=== PATIENT | female | born 1955 | race American Indian/Alaskan Native ===

== ENCOUNTER 2017-09-15 09:26 | Outpatient (CLI) | payer MEDICARE ==
[2017-09-15 10:07] LABS: Hematocrit 38.2 % (30.3-42.9); Hemoglobin 12.9 gm/dl (10.1-14.3); Mean Corpuscular HGB Conc 34 % (30-34); Mean Corpuscular Hemoglobin 30 pg (28-32); Mean Corpuscular Volume 87 fl (79-97); Platelet Count 353 K/mm3 (140-440); Red Blood Count 4.37 M/mm3 (3.65-5.03); Red Cell Distribution Width 14.8 % (13.2-15.2)
[2017-09-15 10:24] LABS: Alanine Aminotransferase 10 units/L (7-56); BUN/Creatinine Ratio 25; Blood Urea Nitrogen 20 mg/dL (7-17); Calcium 9.3 mg/dL (8.4-10.2); Hemolysis Index 3
--- NOTE | 2017-09-15 10:31 | XRay Report ---
CHEST 2 VIEWS INDICATION: COPD. COMPARISON: 07/04/[address] findings. FINDINGS: PA and lateral chest radiographs demonstrate normal cardiomediastinal silhouette. Aortic knob calcifications. Clear, well-expanded lungs. Thoracic spondylosis. Cholecystectomy clips. CONCLUSION: No acute chest process, as described. Thank you for the opportunity to participate in this patient's care.
== END 2017-09-15 09:27 | disposition home or self-care (01) ==
LOC: XRAY 09:26
PROVIDERS: ATTEND Internal Medicine
DX: J44.9 Chronic obstructive pulmonary disease, unspecified (principal); I10 Essential (primary) hypertension; K21.9 Gastro-esophageal reflux disease without esophagitis; Z87.891 Personal history of nicotine dependence
CPT/HCPCS: 36415; 71046; 80053; 82785; 82803; 84436; 84443; 85027

== ENCOUNTER 2020-07-29 20:54 | Emergency (ER) | payer MEDICARE ==
[2020-07-29] MEDS ORDERED: IPRATROPIUM 0.02% NEBU 2.5 ML IH ONE (21:13)
[2020-07-29] MEDS ORDERED: methylPREDNISolone Sod Succinate 125 MG/2 ML INJ IV ONE (21:13)
[2020-07-29] MEDS ORDERED: ALBUTEROL 2.5 MG/3 ML NEBU IH ONE (21:13)
[2020-07-29 21:50] LABS: Basophils # (Auto) 0.1 K/mm3 (0.0-0.1); Basophils % (Auto) 1.6 % (0.0-1.8); Eosinophils # (Auto) 0.4 K/mm3 (0.0-0.4); Eosinophils % (Auto) 5.5 % (0.0-4.3); Hematocrit 38.3 % (30.3-42.9); Hemoglobin 12.7 gm/dl (10.1-14.3); Lymphocytes # (Auto) 2.1 K/mm3 (1.2-5.4); Lymphocytes % (Auto) 27.8 % (13.4-35.0); Mean Corpuscular HGB Conc 33 % (30-34); Mean Corpuscular Volume 86 fl (79-97); Monocytes # (Auto) 0.4 K/mm3 (0.0-0.8); Monocytes % (Auto) 5.8 % (0.0-7.3); Platelet Count 344 K/mm3 (140-440); Red Blood Count 4.43 M/mm3 (3.65-5.03); Red Cell Distribution Width 17.3 % (13.2-15.2)
--- NOTE | 2020-07-29 22:03 | XRay Report ---
CHEST 1 VIEW 07/29/2020 8:35 PM INDICATION / CLINICAL INFORMATION: sob, wheezing. COMPARISON: None FINDINGS: SUPPORT DEVICES: None. HEART / MEDIASTINUM: Cardiac silhouette is within normal limits. Aortic arch demonstrated calcific at herosclerosis. Hilar and mediastinal contours are otherwise unremarkable. LUNGS / PLEURA: No significant pulmonary or pleural abnormality. No pneumothorax. ADDITIONAL FINDINGS: No significant additional findings. IMPRESSION: 1. No acute findings. Signer Name: Fausto Harris MD Signed: 07/29/2020 9:58 PM Workstation Name: [id number]
[2020-07-29 22:17] LABS: BUN/Creatinine Ratio 14; Blood Urea Nitrogen 11 mg/dL (7-17); Calcium 9.6 mg/dL (8.4-10.2); Hemolysis Index 15
--- NOTE | 2020-07-29 22:52 | Emergency Department Report ---
ED Shortness of Breath HPI - General Chief Complaint: Dyspnea/Respdistress Stated Complaint: ALDA Time Seen by Provider: 07/29/20 21:05 Source: EMS Mode of arrival: Stretcher Limitations: No Limitations - History of Present Illness Initial Comments: 65-year-old female, history of COPD (not on home O2), presents to ED with shortness of breath and wheezing since last night. Patient denies any chest pain. Patient reports cough, denies fever. Patient reports inhalers and nebulizers at home are not working. Patient states she stopped smoking approximately 1 year ago. Patient states she has not yet received her COVID-19 vaccine. MD Complaint: shortness of breath -: Last night Consistency: constant Improves With: nothing Worsens With: exertion Known History Of: COPD Associated Symptoms: cough Treatments Prior to Arrival: bronchodilator - Related Data Home Oxygen Therapy: No Home Medications Medication Instructions Recorded Confirmed Last Taken Albuterol Sulfate [Proair Hfa] 2 pump IH BID 09/21/14 10/15/14 10/14/14 Clonidine HCl 0.1 mg PO DAILY 09/21/14 10/15/14 10/13/14 Codeine/Butalbital/ASA/Caffein 1 each PO Q8H PRN 09/21/14 10/15/14 10/13/14 [Butalbital Comp-Codeine #3 Cap] Lisinopril/Hydrochlorothiazide 1 tab PO DAILY 09/21/14 10/15/14 10/15/14 [Lisinopril-Hctz 10-12.5 mg Tab] Omeprazole 40 mg PO DAILY 09/21/14 10/15/14 10/13/14 Paroxetine HCl 20 mg PO DAILY 09/21/14 10/15/14 10/15/14 Pentoxifylline 400 mg PO BID 09/21/14 10/15/14 10/14/14 Previous Rx's Medication Instructions Recorded Last Taken Type Albuterol Sulfate [Proventil Hfa] 2 puff IH Q4HR PRN #1 hfa.aer.ad 07/29/20 Unknown Rx Benzonatate [Tessalon Perles] 100 mg PO Q8HR PRN #20 capsule 07/29/20 Unknown Rx predniSONE [Deltasone] 50 mg PO QDAY #5 tab 07/29/20 Unknown Rx Allergies Allergy/AdvReac Type Severity Reaction Status Date / Time aspirin AdvReac Mild Nausea Verified 07/29/20 21:05 ED Review of Systems ROS: Stated complaint: ALDA Other details as noted in HPI Comment: All other systems reviewed and negative Constitutional: denies: fever Respiratory: cough, shortness of breath, wheezing Cardiovascular: denies: chest pain ED Past Medical Hx - Past Medical History Previous Medical History?: Yes Hx Hypertension: Yes Hx Asthma: Yes Hx COPD: Yes Additional medical history: chronic bronchitis, depression - Surgical History Past Surgical History?: Yes Hx Cholecystectomy: Yes Additional Surgical History: back surgery - Social History Smoking Status: Former Smoker Substance Use Type: Alcohol, Marijuana - Medications Home Medications: Home Medications Medication Instructions Recorded Confirmed Last Taken Type Albuterol Sulfate [Proair Hfa] 2 pump IH BID 09/21/14 10/15/14 10/14/14 History Clonidine HCl 0.1 mg PO DAILY 09/21/14 10/15/14 10/13/14 History Codeine/Butalbital/ASA/Caffein 1 each PO Q8H PRN 09/21/14 10/15/14 10/13/14 History [Butalbital Comp-Codeine #3 Cap] Lisinopril/Hydrochlorothiazide 1 tab PO DAILY 09/21/14 10/15/14 10/15/14 History [Lisinopril-Hctz 10-12.5 mg Tab] Omeprazole 40 mg PO DAILY 09/21/14 10/15/14 10/13/14 History Paroxetine HCl 20 mg PO DAILY 09/21/14 10/15/14 10/15/14 History Pentoxifylline 400 mg PO BID 09/21/14 10/15/14 10/14/14 History Albuterol Sulfate [Proventil Hfa] 2 puff IH Q4HR PRN #1 hfa.aer.ad 07/29/20 Unknown Rx Benzonatate [Tessalon Perles] 100 mg PO Q8HR PRN #20 capsule 07/29/20 Unknown Rx predniSONE [Deltasone] 50 mg PO QDAY #5 tab 07/29/20 Unknown Rx ED Physical Exam - General Limitations: No Limitations General appearance: alert, in no apparent distress - Head Head exam: Present: atraumatic, normocephalic - Eye Eye exam: Present: normal appearance - ENT ENT exam: Present: mucous membranes moist - Neck Neck exam: Present: normal inspection - Respiratory Respiratory exam: Present: wheezes - Cardiovascular Cardiovascular Exam: Present: regular rate, normal rhythm - GI/Abdominal GI/Abdominal exam: Present: soft. Absent: distended, tenderness - Extremities Exam Extremities exam: Present: normal inspection - Neurological Exam Neurological exam: Present: alert, oriented X3 - Psychiatric Psychiatric exam: Present: normal affect, normal mood - Skin Skin exam: Present: warm, dry, intact, normal color ED Course Vital Signs 07/29/20 07/29/20 07/29/20 20:59 21:00 21:06 Temperature 98.1 F Pulse Rate 67 Pulse Rate [ Bilateral Throughout] Respiratory 17 12 Rate Respiratory Rate [Bilateral Throughout] Blood Pressure 159/85 O2 Sat by Pulse 100 100 Oximetry 07/29/20 07/29/20 07/29/20 21:16 21:18 21:30 Temperature Pulse Rate 65 64 Pulse Rate [ Bilateral Throughout] Respiratory 22 23 Rate Respiratory Rate [Bilateral Throughout] Blood Pressure 152/73 154/82 O2 Sat by Pulse 100 100 98 Oximetry 07/29/20 22:34 Temperature Pulse Rate Pulse Rate [ 60 Bilateral Throughout] Respiratory Rate Respiratory 18 Rate [Bilateral Throughout] Blood Pressure O2 Sat by Pulse Oximetry - Reevaluation(s) Reevaluation #1: 07/29/20 23:37 Wheezing mostly resolved, only scant wheezes remain. Patient reports she is feeling much better following the nebulizer treatment. ED Medical Decision Making - Lab Data Result diagrams: 07/29/20 21:21 07/29/20 21:21 - EKG Data -: EKG Interpreted by Wi EKG shows normal: sinus rhythm, axis, intervals, QRS complexes, ST-T waves Rate: normal - EKG Data Interpretation: no acute changes - Radiology Data Radiology results: report reviewed, image reviewed - Medical Decision Making 65-year-old female presents to ED with COPD exacerbation. Initially with coarse wheezes throughout. Patient afebrile, O2 sats normal. Patient given Solu- Medrol and albuterol nebs. She is currently feeling much better. Labs are unremarkable. EKG shows no ST changes. Troponin negative. Chest x-ray negative as well. Will discharge at this time with prescriptions. Outpatient follow-up advised, return precautions given. Critical care attestation.: If time is entered above; I have spent that time in minutes in the direct care of this critically ill patient, excluding procedure time. ED Disposition Clinical Impression: COPD exacerbation Disposition: DC-01 TO HOME OR SELFCARE Is pt being admited?: No Condition: Stable Instructions: Chronic Obstructive Pulmonary Disease (ED), Chronic Obstructive Pulmonary Disease, [id number] Referrals: PRIMARY CARE, [Primary Care Provider] - 3-5 Days [facility] [Provider Group] - 3-5 Days Time of Disposition: 23:39
[2020-07-29] MEDS ORDERED: traMADol 50 MG TAB PO ONE (23:36)
[2020-07-30 02:47] VITALS: BP 170/75
--- NOTE | 2020-08-01 09:30 | Electrocardiograph Report ---
[facility] Test Date: 2020-07-29 Test Time: 23:31:01 Pat Name: BECCA VASQUES Department: Room: Gender: F [employer] Attendant: Caridad ROOT : 1955 Requested By: BERNARD SPICER Order Number: [id number] Reading MD: Miguel Gross Measurements Intervals [place] Rate: 77 P: 52 MS: 178 QRS: 39 QRSD: 91 T: -82 QT: 377 QTc: 427 Interpretive Statements Sinus rhythm Probable left atrial enlargement Nonspecific T abnormalities, diffuse leads No previous ECG available for comparison Electronically Signed On 08-01-2020 9:30:30 EDT by Miguel Gross
== END 2020-07-30 00:03 | disposition home or self-care (01) ==
LOC: ED 20:54
DX: J44.1 Chronic obstructive pulmonary disease with (acute) exacerbation (principal); I10 Essential (primary) hypertension; Z90.49 Acquired absence of other specified parts of digestive tract; F12.10 Cannabis abuse, uncomplicated; Z79.899 Other long term (current) drug therapy; Z88.6 Allergy status to analgesic agent
CPT/HCPCS: 36415; 71045; 80048; 84484; 85025; 93005; 94644; 96374; 99284; J2930

== ENCOUNTER 2021-11-02 04:31 | Emergency (ER) | payer MEDICARE ==
[2021-11-02] MEDS ORDERED: ACETAMINOPHEN 500 MG TAB PO ONE (08:05)
[2021-11-02 09:35] LABS: Basophils % (Auto) 0.6 % (0.0-1.8); Eosinophils # (Auto) 0.3 K/mm3 (0.0-0.4); Eosinophils % (Auto) 4.3 % (0.0-4.3); Hematocrit 36.4 % (30.3-42.9); Hemoglobin 12.3 gm/dl (10.1-14.3); Lymphocytes # (Auto) 2.8 K/mm3 (1.2-5.4); Lymphocytes % (Auto) 40.8 % (13.4-35.0); Mean Corpuscular HGB Conc 34 % (30-34); Mean Corpuscular Volume 87 fl (79-97); Monocytes # (Auto) 0.7 K/mm3 (0.0-0.8); Monocytes % (Auto) 10.6 % (0.0-7.3); Platelet Count 275 K/mm3 (140-440); Red Blood Count 4.16 M/mm3 (3.65-5.03); Red Cell Distribution Width 15.9 % (13.2-15.2)
--- NOTE | 2021-11-02 09:54 | XRay Report ---
CHEST 2 VIEWS INDICATION / CLINICAL INFORMATION: cough. COMPARISON: 07/29/2020 FINDINGS: SUPPORT DEVICES: None. HEART / MEDIASTINUM: No significant abnormality. LUNGS / PLEURA: No significant pulmonary or pleural abnormality. No pneumothorax. ADDITIONAL FINDINGS: No significant additional findings. IMPRESSION: 1. No acute findings. Signer Name: Linwood Contreras MD Signed: 11/02/2021 9:50 AM Workstation Name: [id number]
[2021-11-02 10:04] LABS: Alanine Aminotransferase 35 units/L (7-56); Albumin 4.1 g/dL (3.9-5); BUN/Creatinine Ratio 12; Blood Urea Nitrogen 11 mg/dL (7-17); Calcium 10.2 mg/dL (8.4-10.2); Hemolysis Index 0
--- NOTE | 2021-11-02 10:41 | Emergency Department Report ---
- General Chief Complaint: Upper Respiratory Infection Stated Complaint: HEADACHE/COLD SYMPTOMS Time Seen by Provider: 11/02/21 07:59 Source: patient, family Mode of arrival: Ambulatory Limitations: No Limitations - History of Present Illness Initial Comments: This is a 66-year-old female nontoxic, well nourished in appearance, no acute signs of distress presents to the ED with c/o of productive cough, subjective fever, chills, body aches, sinus headaches, rhinorrhea, nasal congestion x several days. Patient describes productive cough as yellow mucus production. Patient denies any sick contacts. Stated is COVID vaccinated. Patient denies any recent travels, long car, recent hospital stays. Patient denies any calf pain or calf tenderness. Patient denies any chest pain, short of breath, nausea, vomiting, hemoptysis, numbness, tingling, headache or stiff neck. Tarah acevedo stated allergies to aspirin. MD Complaint: fever, cough, rhinorrhea, nasal congestion, sinus pain -: days(s) Severity: mild Severity scale (0 -10): 3 Quality: aching Consistency: constant Improves With: nothing Worsens With: nothing Associated Symptoms: fever, chills, rhinorrhea, nasal congestion, cough, other (sinus pain). denies: myalgias, diaphoresis, headache, sore throat, stiff neck, chest pain, shortness of breath, abdominal pain, nausea, vomiting, diarrhea, d ysuria, rash, confusion, right sweats, weight loss, epistaxis, hoarseness, ear pain Treatments Prior to Arrival: none - Related Data Home Medications Medication Instructions Recorded Confirmed Last Taken Albuterol Sulfate [Proair Hfa] 2 pump IH BID 09/21/14 10/15/14 10/14/14 Clonidine HCl 0.1 mg PO DAILY 09/21/14 10/15/14 10/13/14 Codeine/Butalbital/ASA/Caffein 1 each PO Q8H PRN 09/21/14 10/15/14 10/13/14 [Butalbital Comp-Codeine #3 Cap] Lisinopril/Hydrochlorothiazide 1 tab PO DAILY 09/21/14 10/15/14 10/15/14 [Lisinopril-Hctz 10-12.5 mg Tab] Omeprazole 40 mg PO DAILY 09/21/14 10/15/14 10/13/14 Paroxetine HCl 20 mg PO DAILY 09/21/14 10/15/14 10/15/14 Pentoxifylline 400 mg PO BID 09/21/14 10/15/14 10/14/14 Previous Rx's Medication Instructions Recorded Last Taken Type Albuterol Sulfate [Proventil Hfa] 2 puff IH Q4HR PRN #1 hfa.aer.ad 07/29/20 Unknown Rx Benzonatate [Tessalon Perles] 100 mg PO Q8HR PRN #20 capsule 07/29/20 Unknown Rx predniSONE [Deltasone] 50 mg PO QDAY #5 tab 07/29/20 Unknown Rx Acetaminophen [Acetaminophen 8 650 mg PO Q8H PRN #12 tab 11/02/21 Unknown Rx Hour] Amoxicillin/K Clav Tab [Augmentin 1 tab PO Q12HR #20 tab 11/02/21 Unknown Rx 875 mg] Benzonatate [Tessalon Perles] 100 mg PO Q8HR PRN #14 cap 11/02/21 Unknown Rx Allergies Allergy/AdvReac Type Severity Reaction Status Date / Time aspirin AdvReac Mild Nausea Verified 07/29/20 21:05 ED Review of Systems ROS: Stated complaint: HEADACHE/COLD SYMPTOMS Other details as noted in HPI Comment: All other systems reviewed and negative Constitutional: chills, fever Eyes: denies: eye pain, eye discharge, vision change ENT: congestion. denies: ear pain, throat pain Respiratory: cough. denies: shortness of breath, wheezing Cardiovascular: denies: chest pain, palpitations Endocrine: no symptoms reported Gastrointestinal: denies: abdominal pain, nausea, diarrhea Genitourinary: denies: urgency, dysuria, discharge Musculoskeletal: denies: back pain, joint swelling, arthralgia Skin: denies: rash, lesions Neurological: denies: headache, weakness, paresthesias Psychiatric: denies: anxiety, depression Hematological/Lymphatic: denies: easy bleeding, easy bruising ED Past Medical Hx - Past Medical History Previous Medical History?: Yes Hx Hypertension: Yes Hx Asthma: Yes Hx COPD: Yes Additional medical history: chronic bronchitis, depression - Surgical History Past Surgical History?: Yes Hx Cholecystectomy: Yes Additional Surgical History: back surgery - Social History Smoking Status: Never Smoker Substance Use Type: None - Medications Home Medications: Home Medications Medication Instructions Recorded Confirmed Last Taken Type Albuterol Sulfate [Proair Hfa] 2 pump IH BID 09/21/14 10/15/14 10/14/14 History Clonidine HCl 0.1 mg PO DAILY 09/21/14 10/15/14 10/13/14 History Codeine/Butalbital/ASA/Caffein 1 each PO Q8H PRN 09/21/14 10/15/14 10/13/14 History [Butalbital Comp-Codeine #3 Cap] Lisinopril/Hydrochlorothiazide 1 tab PO DAILY 09/21/14 10/15/14 10/15/14 History [Lisinopril-Hctz 10-12.5 mg Tab] Omeprazole 40 mg PO DAILY 09/21/14 10/15/14 10/13/14 History Paroxetine HCl 20 mg PO DAILY 09/21/14 10/15/14 10/15/14 History Pentoxifylline 400 mg PO BID 09/21/14 10/15/14 10/14/14 History Albuterol Sulfate [Proventil Hfa] 2 puff IH Q4HR PRN #1 hfa.aer.ad 07/29/20 Unknown Rx Benzonatate [Tessalon Perles] 100 mg PO Q8HR PRN #20 capsule 07/29/20 Unknown Rx predniSONE [Deltasone] 50 mg PO QDAY #5 tab 07/29/20 Unknown Rx Acetaminophen [Acetaminophen 8 650 mg PO Q8H PRN #12 tab 11/02/21 Unknown Rx Hour] Amoxicillin/K Clav Tab [Augmentin 1 tab PO Q12HR #20 tab 11/02/21 Unknown Rx 875 mg] Benzonatate [Tessalon Perles] 100 mg PO Q8HR PRN #14 cap 11/02/21 Unknown Rx ED Physical Exam - General Limitations: No Limitations General appearance: alert, in no apparent distress - Head Head exam: Present: atraumatic, normocephalic - Eye Eye exam: Present: normal appearance, PERRL, EOMI - ENT ENT exam: Present: normal exam, normal orophraynx - Neck Neck exam: Present: normal inspection, full ROM. Absent: tenderness, meningismus, lymphadenopathy - Respiratory Respiratory exam: Present: normal lung sounds bilaterally. Absent: respiratory distress, wheezes, rales, rhonchi, stridor, chest wall tenderness, accessory mus norberto use, decreased breath sounds, prolonged expiratory - Cardiovascular Cardiovascular Exam: Present: regular rate, normal rhythm, normal heart sounds. Absent: bradycardia, tachycardia, irregular rhythm, systolic murmur, diastolic murmur, rubs, gallop - GI/Abdominal GI/Abdominal exam: Present: soft, normal bowel sounds. Absent: distended, tenderness, guarding, rebound, rigid, diminished bowel sounds - Extremities Exam Extremities exam: Present: normal inspection, full ROM - Back Exam Back exam: Present: normal inspection, full ROM - Neurological Exam Neurological exam: Present: alert, oriented X3, normal gait - Expanded Neurological Exam Expanded Patient oriented to: Present: person, place, time Cranial nerves: EOM's Intact: Normal Best Eye Response ([place]): (4) open spontaneously Best Motor Response (Eddie): (6) obeys commands Best Verbal Response ([place]): (5) oriented Eddie Total: 15 - Psychiatric Psychiatric exam: Present: normal affect, normal mood - Skin Skin exam: Present: warm, dry, intact, normal color. Absent: rash - Other Other exam information: Positive frontal sinus tenderness ED Course Vital Signs 11/02/21 04:31 Temperature 99.1 F Pulse Rate 74 Respiratory 18 Rate Blood Pressure 124/76 O2 Sat by Pulse 98 Oximetry - Reevaluation(s) Reevaluation #1: 11/02/21 10:37 Patient is speaking in full sentences with no signs of distress noted. ED Medical Decision Making - Lab Data Result diagrams: 11/02/21 08:51 11/02/21 08:51 Lab Results 11/02/21 11/02/21 Range/Units 08:51 08:51 WBC 6.8 (4.5-11.0) K/mm3 RBC 4.16 (3.65-5.03) M/mm3 Hgb 12.3 (10.1-14.3) gm/dl Hct 36.4 (30.3-42.9) % MCV 87 (79-97) fl MCH 30 (28-32) pg MCHC 34 (30-34) % RDW 15.9 H (13.2-15.2) % Plt Count 275 (140-440) K/mm3 Lymph % (Auto) 40.8 H (13.4-35.0) % Murray % (Auto) 10.6 H (0.0-7.3) % Eos % (Auto) 4.3 (0.0-4.3) % Baso % (Auto) 0.6 (0.0-1.8) % Lymph # (Auto) 2.8 (1.2-5.4) K/mm3 [place] # (Auto) 0.7 (0.0-0.8) K/mm3 Eos # (Auto) 0.3 (0.0-0.4) K/mm3 Baso # (Auto) 0.0 (0.0-0.1) K/mm3 Seg Neutrophils % 43.7 (40.0-70.0) % Seg Neutrophils # 3.0 (1.8-7.7) K/mm3 Sodium 142 (137-145) mmol/L Potassium 3.6 (3.6-5.0) mmol/L Chloride 104.2 (98-107) mmol/L Carbon Dioxide 26 (22-30) mmol/L Anion Gap 15 mmol/L BUN 11 (7-17) mg/dL Creatinine 0.9 (0.6-1.2) mg/dL Estimated GFR > 60 ml/min BUN/Creatinine Ratio 12 % Glucose 91 (65-100) mg/dL Calcium 10.2 (8.4-10.2) mg/dL Total Bilirubin 0.70 (0.1-1.2) mg/dL AST 44 H (5-40) units/L ALT 35 (7-56) units/L Alkaline Phosphatase 193 H (35-129) units/L Total Protein 8.0 (6.3-8.2) g/dL Albumin 4.1 (3.9-5) g/dL Albumin/Globulin Ratio 1.1 % - Radiology Data [facility] [address] [place] [address] XRay Report Signed Patient: BECCA VASQUES MR#: [id number] 147 : 1955 Acct:[id number] Age/Sex: 66 / F ADM Date: 11/02/21 Loc: ED Attending Dr: Ordering Physician: CLAIRE MILLER NP Date of Service: 11/02/21 Procedure(s): XR chest routine 2V Accession Number(s): [id number] cc: CLAIRE MILLER NP Fluoro Time In Minutes: CHEST 2 VIEWS INDICATION / CLINICAL INFORMATION: cough. COMPARISON: 07/29/2020 FINDINGS: SUPPORT DEVICES: None. HEART / MEDIASTINUM: No significant abnormality. LUNGS / PLEURA: No significant pulmonary or pleural abnormality. No pneumothorax. ADDITIONAL FINDINGS: No significant additional findings. IMPRESSION: 1. No acute findings. Signer Name: Linwood Contreras MD Signed: 11/02/2021 9:50 AM Workstation Name: [id number] Transcribed By: TL Dictated By: Linwood Contreras MD Electronically Authenticated By: Linwood Contreras MD Signed Date/Time: 11/02/21949 DD/ 9 TD/TT: - Medical Decision Making This is a 66-year-old female that presents with upper resp inrfection with s inusitis. Patient is stable and was examined by me. Chest x-ray has been obtained and dictated by radiologist with normal exam. Patient is notified of x-ray results with no questions noted. Patient does not meet clinical concerns of COVID-19 but patient was instructed and educated on signs and symptoms and to self quarantine and seek medical attention as soon as possible if symptoms does occur. I will start patient on Augmentin. Patient was instructed to increase hydration, rest and take Tylenol for fever episodes. Patient received Tylenol in the ED. Vitals stable. Patient is nonfebrile and normal heart rate. Patient was instructed Follow-up with a primary care doctor in 3-5 days or if symptoms worsen and continue return to emergency room as soon as possible. At time time of discharge, the patient does not seem toxic or ill in appearance. No acute signs of distress noted. Patient agrees to discharge treatment plan of care. No further questions noted by the patient.nt. Critical care attestation.: If time is entered above; I have spent that time in minutes in the direct care of this critically ill patient, excluding procedure time. ED Disposition Clinical Impression: Upper respiratory infection Qualifiers: URI type: unspecified URI Qualified Code(s): J06.9 - Acute upper respiratory infection, unspecified Sinusitis Qualifiers: Sinusitis location: frontal Chronicity: acute Recurrence: non-recurrent Qualified Code(s): J01.10 - Acute frontal sinusitis, unspecified Disposition: 01 HOME / SELF CARE / HOMELESS Is pt being admited?: No Does the pt Need Aspirin: No Condition: Stable Instructions: Sinusitis, Adult, [id number] Additional Instructions: Follow-up with a primary care doctor in 3-5 days or if symptoms worsen and continue return to emergency room as soon as possible. Your symptoms appear most consistent with a nonspecific viral syndrome. However, given this current pandemic, COVID-19 is in the differential of possibilities. Despite your previous negative COVID-19 test, I do recommend repeat outpatient Covid 19 testing. In the meantime, isolate/quarantine yourself and stay away from anyone who is elderly, immunocompromised or chronically ill. Please see your nearest health department or primary care doctor that you are referred to for COVID testing. Increased rest, hydration, and take [id number] Tylenol as directed from instructions label for pain/fever episode. Prescriptions: Acetaminophen [Acetaminophen 8 Hour] 650 mg PO Q8H PRN #12 tab PRN Reason: fever/pain Amoxicillin/K Clav Tab [Augmentin 875 mg] 1 tab PO Q12HR #20 tab Benzonatate [Tessalon Perles] 100 mg PO Q8HR PRN #14 cap PRN Reason: Cough Referrals: PRIMARY CAREMD [Primary Care Provider] - 3-5 Days MIRELA KING MD [Staff Physician] - 3-5 Days Time of Disposition: 10:41
[2021-11-02 10:54] VITALS: BP 122/55
== END 2021-11-02 10:56 | disposition home or self-care (01) ==
LOC: ED 04:31
DX: J06.9 Acute upper respiratory infection, unspecified (principal); J32.9 Chronic sinusitis, unspecified; I10 Essential (primary) hypertension; J44.9 Chronic obstructive pulmonary disease, unspecified; Z98.890 Other specified postprocedural states; F32.9 Major depressive disorder, single episode, unspecified; Z88.6 Allergy status to analgesic agent
CPT/HCPCS: 36415; 71046; 80053; 85025; 99284